=== PATIENT | female | born 1995 | race Two or more races ===

== ENCOUNTER 2018-09-08 09:54 | Emergency (ER) | payer SELFPAY ==
[~2018-09-08] VITALS: Ht 170.2 cm; Wt 79.4 kg
[2018-09-08 10:00] VITALS: BP 134/91
[2018-09-08] MEDS ORDERED: SODIUM CHLORIDE 0.9% 1,000 ML IVB ONE (13:02)
[2018-09-08] MEDS ORDERED: ONDANSETRON HCL 4 MG/2 ML VIAL IV ONE (13:15)
[2018-09-08 13:44] LABS: Basophils # (auto) 0.1 uL; Basophils % (auto) 0.5 % (0.0-2.0); Eosinophils # (auto) 0.1 uL; Eosinophils % (auto) 0.5 % (0.0-7.0); Hematocrit 42.7 % (36.0-46.0); Hemoglobin 14.7 g/dL (12.2-16.2); Lymphocytes # (auto) 4.5 uL; Lymphocytes % (auto) 33.3 % (10.0-50.0); Mean Corpuscular Hemoglobin 28.4 pg (28.0-32.0); Mean Corpuscular Hgb Conc. 34.3 g/dL (32.0-36.0); Mean Corpuscular Volume 82.7 fL (80.0-100.0); Monocytes # (auto) 0.9 uL; Monocytes % (auto) 6.9 % (0.0-12.0); Neutrophils # (auto) 7.9 uL; Neutrophils % (auto) 58.8 % (37.0-80.0); Nucleated Red Blood Cells % 0.1 %; Platelet Count (auto) 324 10^3/uL (140-450); Red Blood Cells 5.16 10^6/uL (4.0-5.20); Red Cell Distribution Width 13.1 % (11.8-14.3); White Blood Cell 13.4 10^3/uL (4.4-10.8)
[2018-09-08 14:00] LABS: Salicylate < 1.7 mg/dL (2.8-20.0)
[2018-09-08 14:01] LABS: Chloride 105 mmol/L (98-107); Potassium 4.4 mmol/L (3.5-5.1); Sodium 136 mmol/L (136-145)
[2018-09-08 14:03] LABS: Acetaminophen < 2.0 ug/mL (10-30)
[2018-09-08 14:08] LABS: Alanine Aminotransferase 103 U/L (13-56); Albumin 3.8 g/dL (3.4-5.0); Alkaline Phosphatase 152 U/L (45-117); Anion Gap 4 (5-15); Aspartate Aminotransferase 101 U/L (15-37); BUN/Creatinine Ratio 15.2; Bilirubin, Total 1.2 mg/dL (0.2-1.0); Blood Alcohol < 3.0 mg/dL (0-5); Blood Urea Nitrogen 10 mg/dL (7-18); Calcium 9.1 mg/dL (8.5-10.1); Carbon Dioxide 27 mmol/L (21-32); GFR African American 143 mL/min; GFR Non-African American 118 mL/min; Glucose 112 mg/dL (74-106); Total Protein 8.1 g/dL (6.4-8.2)
[2018-09-08 14:45] LABS: Urine Pregnacy Test Negative (Negative)
[2018-09-08 14:53] LABS: Urine Bacteria MOD /hpf (None Seen); Urine Blood 1+ /uL (Negative); Urine Mucus MODERATE (None Seen); Urine Specific Gravity 1.018 (1.001-1.035); Urine WBC 1380 /hpf (0 - 5); Urine WBC Clumps PRESENT /hpf (None Seen)
[2018-09-08 15:01] LABS: Alcohol, Urine < 3.0 mg/dL (0-5); Amphetamine Screen, Urine POSITIVE (NEGATIVE); Barbiturate Scree,Urine NEGATIVE (NEGATIVE); Benzodiazephine Screen, Urine POSITIVE (NEGATIVE); Cannabinoid Screen, Urine POSITIVE (NEGATIVE); Cocaine Screen, Urine NEGATIVE (NEGATIVE); Opiate Scree,Urine NEGATIVE (NEGATIVE); Phencyclidine Screen, Urine NEGATIVE (NEGATIVE)
[2018-09-08 15:27] LABS: Amylase 23 U/L (25-115); Lipase 63 U/L (73-393)
[2018-09-08] MEDS ORDERED: cefTRIAXone 1GM/50ML D5W 50 ML IV ONE (16:00)
[2018-09-08] MEDS ORDERED: LORazepam 0.5 MG TAB PO ONE (19:00)
== END 2018-09-08 22:29 | disposition left against medical advice (07) ==
LOC: ER 09:59
DX: F32.9 Major depressive disorder, single episode, unspecified (principal); N39.0 Urinary tract infection, site not specified; R94.5 Abnormal results of liver function studies; R45.851 Suicidal ideations; F17.210 Nicotine dependence, cigarettes, uncomplicated; F11.10 Opioid abuse, uncomplicated; Z53.29 Procedure and treatment not carried out because of patient's decision for other reasons
CPT/HCPCS: 36415; 80053; 80307; 80320; 80329; 81001; 81025; 82150; 83690; 85025; 94761; 96361; 96365; 96375; 99284; J2405